=== PATIENT | male | born 1950 | race Caucasian/White ===

== ENCOUNTER → 2019-09-09 | Outpatient (CLI) | payer MEDICARE ==
[~2019-09-09] MED LIST: ASPI-496 PO; LOSA25TA25 PO; OMEG300C PO; OXYC-299 PO; SIMV5TAB14 PO
== END | disposition home or self-care (01) ==
LOC: CFH 08:02
PROVIDERS: ATTEND Family Medicine
DX: Z12.2 Encounter for screening for malignant neoplasm of respiratory organs (principal); J84.10 Pulmonary fibrosis, unspecified; J43.9 Emphysema, unspecified; R59.0 Localized enlarged lymph nodes; M47.814 Spondylosis without myelopathy or radiculopathy, thoracic region; Z87.891 Personal history of nicotine dependence
CPT/HCPCS: G0297

== ENCOUNTER → 2019-09-22 | Outpatient (CLI) | payer MEDICARE | END | disposition home or self-care (01) | LOC: PETCFH 13:36 | PROVIDERS: ATTEND Family Medicine | DX: R91.1 Solitary pulmonary nodule (principal); J43.2 Centrilobular emphysema; I71.4 Abdominal aortic aneurysm, without rupture; R59.0 Localized enlarged lymph nodes | CPT/HCPCS: 78815; A9552 ==

== ENCOUNTER 2019-10-21 05:59 | Day surgery (SDC) | payer MEDICARE ==
[~2019-10-21] VITALS: Ht 185.4 cm; Wt 89.0 kg
[2019-10-21] MEDS ORDERED: LACTATED RINGERS 1,000 ML IV SCH (06:21)
[2019-10-21] MEDS ORDERED: FAMOTIDINE 20 MG TABLET PO ONE (07:00)
[2019-10-21] MEDS ORDERED: DIPHENHYDRAMINE 50 MG/ML, 1ML IVPush ONE (07:00)
[2019-10-21 07:04] VITALS: BP 166/109
[2019-10-21 07:12] VITALS: BP 162/109
[2019-10-21 07:12] LABS: BASOPHILS # (AUTO) 0.02 x10^3/uL (0-0.1); BASOPHILS % (AUTO) 0 % (0-1); EOSINOPHILS # (AUTO) 0.19 x10^3/uL (0-0.4); EOSINOPHILS % (AUTO) 2 % (1-7); LYMPHOCYTES # (AUTO) 1.21 x10^3/uL (1-3.4); LYMPHOCYTES % (AUTO) 14 % (22-44); MD NO; MEAN CORPUSCULAR HEMOGLOBIN 33.2 pg (27.5-34.5); MEAN CORPUSCULAR HGB CONC 33.7 g/dL (33.2-36.2); MEAN CORPUSCULAR VOLUME 98.5 fL (81-97); MEAN PLATELET VOLUME 7.3 fL (7.4-10.4); MONOCYTES # (AUTO) 0.58 x10^3/uL (0.2-0.8); MONOCYTES % (AUTO) 7 % (2-9); NEUTROPHILS # (AUTO) 6.85 x10^3/uL (1.8-6.8); NEUTROPHILS % (AUTO) 78 % (42-75); PLATELET COUNT 257 x10^3/uL (130-400); RED BLOOD COUNT 4.65 x10^6/uL (4.38-5.82); RED CELL DISTRIBUTION WIDTH 15.2 % (9.4-14.8)
[2019-10-21 07:20] LABS: ALANINE AMINOTRANSFERASE 24 U/L (12-78); ALBUMIN 3.1 g/dL (3.4-5.0); ANION GAP 6 mmol/L (5-15); CALCIUM 8.4 mg/dL (8.5-10.1); CHLORIDE 112 mmol/L (98-107); CREATININE 1.13 mg/dL (0.7-1.3)
[2019-10-21 07:23] LABS: ALKALINE PHOSPHATASE 52 U/L (45-117); BILIRUBIN,TOTAL 0.4 mg/dL (0.2-1.0); TOTAL PROTEIN 7.2 g/dL (6.4-8.2)
[2019-10-21] MEDS ORDERED: CHLORHEXIDINE 15 ML UDC ONE (07:27)
[2019-10-21] MEDS ORDERED: CHLORHEXIDINE 15 ML UDC MM ONE (07:30)
[2019-10-21] MEDS ORDERED: FENTANYL PF 100 MCG/2ML ONE ×2 (07:35→08:40)
[2019-10-21] MEDS ORDERED: MIDAZOLAM 1 MG/ML, 2ML ONE (07:35)
[2019-10-21 07:50] LABS: INTERNATIONAL NORMALIZED RATIO 0.92 (0.93-1.1); PROTHROMBIN TIME 9.7 Seconds (9.6-11.5)
[2019-10-21] MEDS ORDERED: OXYcodone 5 MG/5 ML ORAL.SOL UDC PO PRN (08:30)
[2019-10-21] MEDS ORDERED: FENTANYL PF 100 MCG/2ML IV PRN (08:30)
[2019-10-21] MEDS ORDERED: HYDROmorphone 2 MG/ML, 1ML IVPush PRN (08:30)
[2019-10-21] MEDS ORDERED: MEPERIDINE/PF 25MG/0.5ML IVPush PRN (08:30)
[2019-10-21] MEDS ORDERED: DIAZEPAM 5 MG/ML, 2ML IVPush PRN (08:30)
[2019-10-21] MEDS ORDERED: LABETALOL 5MG/ML, 20ML IV PRN (08:30)
[2019-10-21] MEDS ORDERED: ACETAMINOPHEN 325 MG TABLET PO PRN (08:30)
[2019-10-21] MEDS ORDERED: KETOROLAC 30 MG/1 ML IV PRN (08:30)
[2019-10-21] MEDS ORDERED: hydrALAzine 20 MG/ML, 1ML IV PRN (08:30)
[2019-10-21] MEDS ORDERED: PROMETHAZINE 25 MG/ML, 1ML IV PRN (08:30)
[2019-10-21] MEDS ORDERED: ALBUTEROL SULFATE 2.5 MG/3 ML NPPB PRN (08:30)
[2019-10-21] MEDS ORDERED: ONDANSETRON 2MG/ML, 2ML ONE (09:12)
[2019-10-21] MEDS ORDERED: ROCURONIUM 10MG/ML,5ML ONE (09:12)
[2019-10-21] MEDS ORDERED: SUCCINYLCHOLINE 20 MG/ML, 10ML ONE (09:12)
[2019-10-21] MEDS ORDERED: PROPOFOL 10 MG/ML, 20ML ONE (09:12)
[2019-10-21] MEDS ORDERED: DEXAMETHASONE 4 MG/ML, 1ML ONE (09:12)
[2019-10-21] MEDS ORDERED: GLYCOPYRROLATE 0.2MG/1ML, 5ML ONE (09:12)
[2019-10-21] MEDS ORDERED: CEFAZOLIN 1,000 MG ONE (09:12)
[2019-10-21] MEDS ORDERED: NEOSTIGMINE 1 MG/ML, 10ML ONE (09:12)
== END 2019-10-21 10:20 | disposition home or self-care (01) ==
LOC: OUT 05:59
PROVIDERS: ATTEND Internal Medicine Critical Care Medicine
DX: R59.0 Localized enlarged lymph nodes (principal); C77.1 Secondary and unspecified malignant neoplasm of intrathoracic lymph nodes; R91.8 Other nonspecific abnormal finding of lung field; I10 Essential (primary) hypertension; E78.2 Mixed hyperlipidemia; Z79.01 Long term (current) use of anticoagulants; Z79.82 Long term (current) use of aspirin; Z79.899 Other long term (current) drug therapy; Z87.891 Personal history of nicotine dependence; Z98.1 Arthrodesis status; Z98.890 Other specified postprocedural states; Z81.1 Family history of alcohol abuse and dependence; Z81.8 Family history of other mental and behavioral disorders; Z82.49 Family history of ischemic heart disease and other diseases of the circulatory system
CPT/HCPCS: 31652; 36415; 71045; 80053; 85025; 85610; 85730; 88172; 88173; 88305; 88341; 88342; 93005; J0330; J0690; J1100; J1200; J2250; J2405; J2704; J3010; J7120; 31629; 31653; J2710

== ENCOUNTER 2019-11-10 10:14 | Day surgery (SDC) | payer MEDICARE ==
[~2019-11-10] VITALS: Ht 185.4 cm; Wt 86.7 kg
[2019-11-10 10:34] VITALS: BP 171/93
[2019-11-10] MEDS ORDERED: CEFAZOLIN PMX 1GM/50ML 50 ML ONE (10:42)
[2019-11-10] MEDS ORDERED: CEFAZOLIN PMX 1GM/50ML 50 ML IV ONE (11:00)
[2019-11-10] MEDS ORDERED: LIDOCAINE 1%, 10ML ONE (11:30)
[2019-11-10] MEDS ORDERED: LIDOCAINE 1%, 20ML ONE (11:30)
[2019-11-10] MEDS ORDERED: FLUMAZENIL 0.1 MG/1 ML, 5ML ONE (11:51)
[2019-11-10] MEDS ORDERED: NALOXONE 1 MG/ML, 2ML ONE (11:51)
[2019-11-10] MEDS ORDERED: MIDAZOLAM 1 MG/ML, 5ML ONE (11:51)
[2019-11-10] MEDS ORDERED: FENTANYL PF 100 MCG/2ML ONE (11:51)
== END 2019-11-10 13:55 | disposition home or self-care (01) ==
LOC: OUT 10:14
PROVIDERS: ATTEND Specialist
DX: C34.12 Malignant neoplasm of upper lobe, left bronchus or lung (principal)
CPT/HCPCS: 36561; 76937; 77001; 99156; 99157; C1788; J0690; J1642; J2250; J3010; J2310

== ENCOUNTER → 2020-01-22 | Outpatient (CLI) | payer MEDICARE ==
[~2020-01-22] MED LIST changes: +OMNIPAQUE 350 MG/ML, 100ML BOTTLE ONE
== END | disposition home or self-care (01) ==
LOC: CFH 09:31
PROVIDERS: ATTEND Specialist
DX: C34.12 Malignant neoplasm of upper lobe, left bronchus or lung (principal); K76.0 Fatty (change of) liver, not elsewhere classified; J43.9 Emphysema, unspecified; R59.0 Localized enlarged lymph nodes; I25.10 Atherosclerotic heart disease of native coronary artery without angina pectoris; R91.1 Solitary pulmonary nodule; N28.1 Cyst of kidney, acquired; I71.4 Abdominal aortic aneurysm, without rupture; I70.0 Atherosclerosis of aorta; M51.37 Other intervertebral disc degeneration, lumbosacral region
CPT/HCPCS: 71260; 74160; Q9967